=== PATIENT | female | born 1965 | race African-American/Black ===

== ENCOUNTER 2016-08-17 22:37 | Inpatient (IN) | payer OTHER ==
--- NOTE | 2016-08-17 22:57 | PDOC ---
History of Present Illness - General Chief Complaint: Respiratory Stated Complaint: FEVER Time Seen by Provider: 08/17/16 22:52 - History of Present Illness Initial Comments: 08/18/16 00:05 Ms. Cannon is a 51 y/o female with a PMH of cardiac stenting, eczema, presents to the ED complaining of worsening eczema on her palms, fevers, and chills. Pt. states she has worsening eczema of her hands and it has been going on for approximately one month. At that time, she went to [facility] emergency room where she was referred to a cycle specialist. She was given an antihistamine and clobetasol cream at that time. Neither medication helped her eczema and pt. reports that the antihistamine made her hands swell. She stopped using all medications for her hands. Now she states that she has fevers and chills for 2 days and there is pus in the hands and the pustules are draining. Pt. states she is not taking any antibiotics at this time, nor has she had a recent antibiotic prescription. Denies cough, wheezing, palpitations, chest pain, N/V/ D. GENERAL/CONSTITUTIONAL: (+) reported fever or chills. No weakness. No weight change. HEAD, EYES, EARS, NOSE AND THROAT: No change in vision. No ear pain or discharge. No sore throat. CARDIOVASCULAR: No chest pain or palpitations. RESPIRATORY: No cough, wheezing, or shortness of breath. GASTROINTESTINAL: No nausea, vomiting, diarrhea or constipation. GENITOURINARY: No dysuria, frequency, or change in urination. MUSCULOSKELETAL: No joint or muscle swelling or pain. No neck or back pain. SKIN: (+) numular eczema b/L palms with draining pustules. NEUROLOGIC: No headache, vertigo, loss of consciousness, or loss of sensation. PSYCHIATRIC: No depression or anxiety. ENDOCRINE: No increased thirst. No abnormal weight change. HEMATOLOGIC/LYMPHATIC: No anemia, easy bleeding, or history of blood clots. ALLERGIC/IMMUNOLOGIC: No hives or skin allergy. No latex allergy. Past History - Past Medical History Allergies/Adverse Reactions: Allergies Allergy/AdvReac Type Severity Reaction Status Date / Time shellfish derived Allergy Verified 08/17/16 22:45 Home Medications: Ambulatory Orders Aspirin [ASA -] 81 mg PO DAILY 08/17/16 Clopidogrel Bisulfate [Clopidogrel] 75 mg PO DAILY 08/17/16 Metoprolol Succinate [Toprol Xl -] 25 mg PO BID 08/17/16 Ranolazine [Ranexa] 500 mg PO DAILY 08/17/16 Valsartan [Diovan] 40 mg PO DAILY 08/17/16 Asthma: Yes Cardiac Disorders: Yes GI Disorders: Yes (Diverticulitis) HTN: Yes Hypercholesterolemia: Yes - Surgical History Cardiac Surgery: Yes (Stent x 1) - Immunization History Immunization Up to Date: No - Psycho/Social/Smoking Cessation Hx Anxiety: No Suicidal Ideation: No Smoking History: Never smoked Have you smoked in the past 12 months: No Information on smoking cessation initiated: No Hx Alcohol Use: Yes Drug/Substance Use Hx: No Substance Use Type: Alcohol *Physical Exam - Vital Signs Last Vital Signs Temp Pulse Resp BP Pulse Ox 98.7 F 106 H 19 160/100 98 08/17/16 22:39 08/17/16 22:39 08/17/16 22:39 08/17/16 22:39 08/17/16 22:39 - Physical Exam Comments: 08/18/16 00:18 GENERAL: The patient is awake, alert, and fully oriented, in no acute distress. Pt. laying on bed under a blanket. HEAD: Normal with no signs of trauma. ENT: Pupils equal, round and reactive to light, extraocular movements intact, sclera anicteric, conjunctiva clear. Neck supple. LUNGS: Clear to auscultation bilaterally. Normal excursion. No respiratory distress or use of accessory muscles. CV: RRR, S1/S2, no MRG. Cap refill < 2 sec. ABDOMEN: Soft, non-distended, non-tender. EXTREMITIES: Normal range of motion, no edema. NEUROLOGICAL: Normal speech, normal gait. CN II-XII grossly intact. PSYCH: Normal mood, normal affect. SKIN: Warm, dry, normal turgor. (+) B/L nummular eczema with draining pustules over the palmar surface. . ED Treatment Course - LABORATORY CBC & Chemistry Diagram: 08/17/16 23:31 08/17/16 23:31 Medical Decision Making - Medical Decision Making 08/17/16 11:21 Ms. Cannon is a 51 y/o female with worsening nummular eczema of the palmar surfaces of her hands. Because of the pt's constitutional symptoms will order basic labs and order an empric dose of keflex. Pt. has no other complaints at this time. Will order CBC, CMP Keflex and tylenol for the infection. Will re-evaluate 08/18/16 00:24 CBC shows an elevated white count of 16. Will culture the site at this time for pathogen. Will start IV antibitotics. Will admit at this time. 08/18/16 00:[address] Carrion 08/18/16 01:[address] Carrion. Since pt. is stable will call at 6:00. *DC/Admit/Observation/Transfer Diagnosis at time of Disposition: Nummular eczema Leukocytosis Qualifiers: Leukocytosis type: unspecified Qualified Code(s): D72.829 - Elevated white blood cell count, unspecified - Discharge Dispostion Condition at time of disposition: Fair Admit: Yes - Referrals Referrals: Armando Garcia [Primary Care Provider] -
[2016-08-17] MEDS ORDERED: ACETAMINOPHEN 325 MG TABLET (FP) PO ONE (23:15)
[2016-08-17] MEDS ORDERED: CEPHALEXIN MONOHYDRATE 500 MG CAPSULE (UD) PO ONE (23:17)
[2016-08-17] MEDS ORDERED: ACETAMINOPHEN 325 MG TABLET (FP) ONE (23:19)
[2016-08-17 23:59] LABS: BASOPHIL 0.4 % (0-2.0); EOSINOPHIL 0.8 % (0-4.5); MCH 30.9 pg (25.7-33.7); MCHC 33.5 g/dl (32.0-36.0); MEAN PLT VOLUME 7.3 fl (7.5-11.1); NEUTROPHILS 75.3 % (42.8-82.8); PLATELET COUNT 280 K/MM3 (134-434); RDW 14.9 % (11.6-15.6)
[2016-08-18] MEDS ORDERED: CEPHALEXIN MONOHYDRATE 250 MG CAPSULE (FP) ONE (00:03)
[2016-08-18 00:08] LABS: ALBUMIN 3.9 g/dl (3.4-5.0); ALK PHOS 71 U/L (45-117); ANION GAP 9 (8-16); BILIRUBIN,TOTAL 0.2 mg/dL (0.2-1.0); CALCIUM 8.7 mg/dL (8.5-10.1); CO2 26 mmol/L (21-32); CREATININE 0.9 mg/dL (0.55-1.02); GLUCOSE,RANDOM 104 mg/dL (74-106); SGOT/AST 12 U/L (15-37); SGPT/ALT 16 U/L (12-78); TOT PROT 7.1 g/dl (6.4-8.2)
[2016-08-18] MEDS ORDERED: CEFAZOLIN 1 GM in DEXTROSE 5%-WATER - 50 ML IVPB ONE (00:46)
[2016-08-18] MEDS ORDERED: CEFAZOLIN (PRE-DOCKED) 50 ML IVPB ONE (01:32)
[2016-08-18] MEDS ORDERED: ACETAMINOPHEN 325 MG TABLET (FP) PO PRN (03:37)
[2016-08-18 08:32] VITALS: BMI 38.1
--- NOTE | 2016-08-18 09:19 | PN ---
Progress Note (short form) - Note Progress Note: ID Consult dictated Pustular dermatitis, hands bilat Fever/ chills, possible sepsis secondary to skin source Await c/s Empiric vancomycin / ceftriaxone Dermatology eval HIV test
[2016-08-18] MEDS: VALSARTAN 40 MG TABLET (FP) PO SCH (09:46)
[2016-08-18] MEDS: HEPARIN NA (PORCINE) 5,000 UNITS/ML 1ML VIAL SQ SCH ×2 (09:46→23:04)
[2016-08-18] MEDS: ASPIRIN 81 MG CHEWABLE TABLETS PO SCH (09:46)
[2016-08-18] MEDS: CLOPIDOGREL BISULFATE 75 MG TABLET (FP) PO SCH (09:46)
[2016-08-18] MEDS: RANOLAZINE E.R. 500 MG TABLET (FP) PO SCH (09:47)
[2016-08-18] MEDS: METOPROLOL SUCCINATE 25 MG TAB.SR.24H (FP) PO SCH ×2 (09:47→23:04)
[2016-08-18] MEDS: methylPREDNISolone NA SUCC 40 MG/1 ML VIAL IVPB SCH (09:47)
[2016-08-18] MEDS: CEFTRIAXONE 50 ML IVPB SCH (09:53)
--- NOTE | 2016-08-18 10:21 | CONS ---
DATE OF CONSULTATION: 08/18/2016 HISTORY OF PRESENT ILLNESS: The patient is a 51-year-old female who is evaluated for possible sepsis. She has a history of eczema. She reports that approximately one month ago, she developed eczema involving the palms of her hands bilaterally. She also had subjective fever and chills. She was seen in the emergency room at [facility] and was referred to a drone software development engineer. She reports being prescribed topical treatment. Despite the therapy, she has noted a marked worsening in the eczema involving her hands bilaterally. She had developed pustules from which purulent fluid was draining. She also experienced some fever and chills. She did not take any antibiotic therapy during this period. The patient reports a history of hidradenitis suppurativa involving both axillary areas. She has had a history of recurrent staphylococcus infections of the skin. However, she denied specifically history of MRSA. She was HIV tested recently as an outpatient and was negative. PAST MEDICAL HISTORY: Positive for coronary artery disease status post coronary artery stents, eczema, hidradenitis suppurativa. PAST SURGICAL HISTORY: Status post right total hip replacement approximately 4 years ago. ALLERGIES: To SHELLFISH. MEDICATIONS: Include Solu-Medrol, Tylenol, Diovan, heparin, Toprol, aspirin, Plavix. SOCIAL HISTORY: She lives at home. A nonsmoker, but occasional EtOH. SYSTEMS REVIEW: Neurologic: No loss of consciousness, seizure activity, focal weakness. Cardiac: Negative for chest pain or palpitations. Positive history of coronary artery stent. Gastrointestinal: Negative for vomiting or diarrhea. Genitourinary: Negative for urinary tract infection. LABORATORY DATA: White count 16.0, 75 neutrophils, 14 lymphocytes, 9 monocytes, hematocrit 36.6, platelet count 280. Creatinine 0.9. Blood cultures and wound culture pending. PHYSICAL EXAMINATION: General: She is awake and alert. She is weak-appearing. She is not acute toxic. Vital signs: Temperature 99.3, blood pressure 150/77, pulse 93 and regular, respirations 20 per minute. HEENT: Sclerae anicteric. Heart: Heart sounds S1, S2. Lungs: Clear. Abdomen: Obese, soft nontender. Extremities: Negative for pedal edema. Skin: Examination of the hands, she has a pustular dermatitis involving the palms of both hand extending from the palms to the ventral aspect of all digits. They are dry. There is no purulent drainage noted. No erythema. No lymphangitic streaking. IMPRESSION: 1. Pustular dermatitis of the hands bilaterally. 2. Fevers, chills, leukocytosis, possible sepsis secondary to skin sores. 3. History of staphylococcal skin infections. 4. History of eczema. Advised dermatology evaluation. Empiric coverage for possible bacteremia secondary to skin sores. Pending cultures with vancomycin and ceftriaxone. HIV testing. Patient gives verbal consent. Will follow. Thank you for the kind referral. DAFNE LINTON M.D. [id number]
--- NOTE | 2016-08-18 12:04 | HP ---
Admitting History and Physical - Primary Care Physician PCP: Armando Garcia - Admission Chief Complaint: SEVERE ECZEMA. INFECTION History Source: Medical Record - Past Medical History ...: No - Smoking History Smoking history: Never smoked Have you smoked in the past 12 months: No - Alcohol/Substance Use Hx Alcohol Use: Yes Home Medications - Allergies Allergies/Adverse Reactions: Allergies Allergy/AdvReac Type Severity Reaction Status Date / Time shellfish derived Allergy Verified 08/17/16 22:45 - Home Medications Home Medications: Ambulatory Orders Aspirin [ASA -] 81 mg PO DAILY 08/17/16 Clopidogrel Bisulfate [Clopidogrel] 75 mg PO DAILY 08/17/16 Metoprolol Succinate [Toprol Xl -] 25 mg PO BID 08/17/16 Ranolazine [Ranexa] 500 mg PO DAILY 08/17/16 Valsartan [Diovan] 40 mg PO DAILY 08/17/16 Omeprazole 20 mg PO DAILY 08/18/16 Simvastatin [Zocor -] 20 mg PO HS 08/18/16 Review of Systems - Review of Systems Constitutional: reports: Chills, Fever Cardiovascular: denies: Chest Pain Respiratory: denies: SOB Gastrointestinal: reports: Other (NO BM x 4 DAYS). denies: Abdominal Pain Integumentary: reports: Blister, Change in Color, Eczema, Erythema, Lesions Physical Examination Vital Signs: Vital Signs Temperature 99.3 F 08/18/16 03:43 Pulse Rate 93 H 08/18/16 03:43 Respiratory Rate 20 08/18/16 03:43 Blood Pressure 150/77 08/18/16 03:43 O2 Sat by Pulse Oximetry (%) 97 08/18/16 03:22 Constitutional: Yes: Calm Cardiovascular: Yes: Regular Rate and Rhythm, S1, S2 Respiratory: Yes: CTA Bilaterally Gastrointestinal: Yes: Normal Bowel Sounds, Soft Edema: No Integumentary: Yes: Rash (PALMS -> IMPROVED. DRY. MINIMAL DISCHARGE) Problem List - Problems (1) Leukocytosis Code(s): D72.829 - ELEVATED WHITE BLOOD CELL COUNT, UNSPECIFIED Qualifiers: Leukocytosis type: unspecified Qualified Code(s): D72.829 - Elevated white blood cell count, unspecified (2) Nummular eczema Code(s): L30.0 - NUMMULAR DERMATITIS (3) Asthma Code(s): J45.909 - UNSPECIFIED ASTHMA, UNCOMPLICATED (4) HTN (hypertension) Code(s): I10 - ESSENTIAL (PRIMARY) HYPERTENSION Assessment/Plan Ms. Cannon is a 51 y/o female with a PMH of cardiac stenting, eczema, presents to the ED complaining of worsening eczema on her palms, fevers, and chills. Pt. states she has worsening eczema of her hands and it has been going on for approximately one month. At that time, she went to [facility] emergency room where she was referred to a axle bearing polisher. She was given an antihistamine and clobetasol cream at that time. Neither medication helped her eczema and pt. reports that the antihistamine made her hands swell. She stopped using all medications for her hands. Now she states that she has fevers and chills for 2 days and there is pus in the hands and the pustules are draining. Pt. states she is not taking any antibiotics at this time, nor has she had a recent antibiotic prescription. Denies cough, wheezing, palpitations, chest pain, N/V/ D. 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
[2016-08-18] MEDS ORDERED: ALBUTEROL SO4 0.083% IH SOL 2.5 MG/3 ML VIAL.NEB. NEB PRN (12:08)
[2016-08-18] MEDS: VANCOMYCIN 1 GRAM (PRE-DOCKED) 250 ML IVPB SCH ×2 (12:55→23:04)
[2016-08-18] MEDS: POLYETHYLENE GLYCOL 3350 119 GM BTL PO SCH (14:55)
--- NOTE | 2016-08-18 17:12 | CONSULT ---
Consult Consult Specialty:: Dermatology - History Source History Provided By: Patient - Past Medical History ...: No - Alcohol/Substance Use Hx Alcohol Use: Yes - Smoking History Smoking history: Never smoked Have you smoked in the past 12 months: No Home Medications - Allergies Allergies/Adverse Reactions: Allergies Allergy/AdvReac Type Severity Reaction Status Date / Time shellfish derived Allergy Verified 08/17/16 22:45 - Home Medications Home Medications: Ambulatory Orders Aspirin [ASA -] 81 mg PO DAILY 08/17/16 Clopidogrel Bisulfate [Clopidogrel] 75 mg PO DAILY 08/17/16 Metoprolol Succinate [Toprol Xl -] 25 mg PO BID 08/17/16 Ranolazine [Ranexa] 500 mg PO DAILY 08/17/16 Valsartan [Diovan] 40 mg PO DAILY 08/17/16 Omeprazole 20 mg PO DAILY 08/18/16 Simvastatin [Zocor -] 20 mg PO HS 08/18/16 Physical Exam Vital Signs: Vital Signs Temperature 98.0 F 08/18/16 14:00 Pulse Rate 96 H 08/18/16 14:00 Respiratory Rate 20 08/18/16 14:00 Blood Pressure 136/77 08/18/16 14:00 O2 Sat by Pulse Oximetry (%) 97 08/18/16 03:22 Assessment/Plan examined patient for rash on hands. patient has a history of hand dermatitis for a few years for which she has been treated by various Dermatologists On examination she has a severe eczematous eruption on both palms of hands with crusting and fissuring and slight edema. Diagnosis impetiginized dyshydrotic Eczema. Rx Triamcinolone ointment mixed with bactroban ointment BID Follow up as an outpatient after completion of antibiotic Rx
[2016-08-18] MEDS: MUPIROCIN 2% TOPICAL OINTMENT 22 GM TUBE TP SCH (23:03)
[2016-08-18] MEDS: TRIAMCINOLONE ACET 0.1% OINT 15 GM TUBE TP SCH (23:04)
[2016-08-19 02:28] VITALS: TEMP 98.1
[2016-08-19 08:15] LABS: ALBUMIN 3.7 g/dl (3.4-5.0); ANION GAP 10 (8-16); BILIRUBIN,TOTAL 0.4 mg/dL (0.2-1.0); CALCIUM 9.2 mg/dL (8.5-10.1); CO2 26 mmol/L (21-32); CREATININE 0.8 mg/dL (0.55-1.02); GLUCOSE,RANDOM 79 mg/dL (74-106); SGOT/AST 6 U/L (15-37); SGPT/ALT 14 U/L (12-78); TOT PROT 7.1 g/dl (6.4-8.2)
[2016-08-19 08:16] LABS: ALK PHOS 71 U/L (45-117)
[2016-08-19 08:31] LABS: BASOPHIL 0.2 % (0-2.0); MCH 31.2 pg (25.7-33.7); MCHC 33.6 g/dl (32.0-36.0); MEAN CELL VOLUME 92.6 fl (80-96); MEAN PLT VOLUME 7.4 fl (7.5-11.1); NEUTROPHILS 75.3 % (42.8-82.8); PLATELET COUNT 261 K/MM3 (134-434); RDW 14.7 % (11.6-15.6); WHITE BLOOD COUNT 15.1 K/mm3 (4.0-10.0)
[2016-08-19 09:27] LABS: HIV 1 & 2 AB NEGATIVE; HIV 1 AGp24 NEGATIVE
--- NOTE | 2016-08-19 09:34 | PN ---
[id number] (Tylenol -) 650 mg PO Q6H PRN PRN Reason: FEVER OR PAIN Last Admin: 08/19/16 02:51 Dose: 650 mg Albuterol Sulfate (Ventolin 0.083% Nebulizer Soln -) 1 amp NEB Q4H PRN PRN Reason: SHORT OF BREATH/WHEEZING Last Admin: 08/18/16 15:34 Dose: 1 amp Aspirin (Asa -) 81 mg PO DAILY [facility] Last Admin: 08/18/16 09:46 Dose: 81 mg Clopidogrel Bisulfate (Plavix -) 75 mg PO DAILY [facility] Last Admin: 08/18/16 09:46 Dose: Not Given Heparin Sodium (Porcine) (Heparin -) 5,000 unit SQ BID [facility] Last Admin: 08/18/16 23:04 Dose: 5,000 unit Vancomycin HCl (Vancomycin (Pre-Docked)) 250 mls @ 200 mls/hr IVPB BID [facility] Last Admin: 08/18/16 23:04 Dose: 200 mls/hr Ceftriaxone Sodium (Rocephin 1gm Ivpb (Pre-Docked)) 50 mls @ 100 mls/hr IVPB DAILY [facility] Last Admin: 08/18/16 09:53 Dose: 100 mls/hr Methylprednisolone Sodium Succinate (Solu-Medrol -) 40 mg IVPB DAILY [facility] Last Admin: 08/18/16 09:47 Dose: 40 mg Metoprolol Succinate (Toprol Xl -) 25 mg PO BID [facility] Last Admin: 08/18/16 23:04 Dose: 25 mg Mupirocin (Bactroban 2% Ointment -) 1 applic TP BID [facility] Last Admin: 08/18/16 23:03 Dose: 1 applic Polyethylene Glycol (Miralax (For Daily Use) -) 17 gm PO DAILY [facility] Last Admin: 08/18/16 14:55 Dose: 17 gm Ranolazine (Ranexa -) 500 mg PO DAILY [facility] Last Admin: 08/18/16 09:47 Dose: 500 mg Triamcinolone Acetonide (Aristocort 0.1% Ointment -) 1 applic TP BID [facility] Last Admin: 08/18/16 23:04 Dose: 1 applic Valsartan (Diovan -) 40 mg PO DAILY [facility] Last Admin: 08/18/16 09:46 Dose: 40 mg - Objective Vital Signs: Vital Signs Temperature 98.1 F 08/19/16 02:27 Pulse Rate 76 08/19/16 02:27 Respiratory Rate 20 08/19/16 02:27 Blood Pressure 154/97 08/19/16 02:27 O2 Sat by Pulse Oximetry (%) 97 08/18/16 21:00 Cardiovascular: Yes: WNL Respiratory: Yes: WNL Gastrointestinal: Yes: WNL Labs: CBC, BMP 08/19/16 06:20 08/19/16 06:20 Problem List - Problems (1) Leukocytosis Code(s): D72.829 - ELEVATED WHITE BLOOD CELL COUNT, UNSPECIFIED Qualifiers: Leukocytosis type: unspecified Qualified Code(s): D72.829 - Elevated white blood cell count, unspecified (2) Nummular eczema Code(s): L30.0 - NUMMULAR DERMATITIS (3) Asthma Code(s): J45.909 - UNSPECIFIED ASTHMA, UNCOMPLICATED (4) HTN (hypertension) Code(s): I10 - ESSENTIAL (PRIMARY) HYPERTENSION Assessment/Plan Ms. Cannon is a 51 y/o female with a PMH of cardiac stenting, eczema, presents to the ED complaining of worsening eczema on her palms, fevers, and chills. Pt. states she has worsening eczema of her hands and it has been going on for approximately one month. At that time, she went to [facility] emergency room where she was referred to a fisher scallop. She was given an antihistamine and clobetasol cream at that time. Neither medication helped her eczema and pt. reports that the antihistamine made her hands swell. She stopped using all medications for her hands. Now she states that she has fevers and chills for 2 days and there is pus in the hands and the pustules are draining. Pt. states she is not taking any antibiotics at this time, nor has she had a recent antibiotic prescription. Denies cough, wheezing, palpitations, chest pain, N/V/ D. (1) Leukocytosis Code(s): D72.829 - ELEVATED WHITE BLOOD CELL COUNT, UNSPECIFIED Qualifiers: Leukocytosis type: unspecified Qualified Code(s): D72.829 - Elevated white blood cell count, unspecified APPRECIATE ID CONSULT F/U CULTURES IV ABx DERM CONSULT NOTED -> impetiginized dyshydrotic Eczema. 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
[2016-08-19] MEDS: VANCOMYCIN 1 GRAM (PRE-DOCKED) 250 ML IVPB SCH (10:34)
[2016-08-19] MEDS: VALSARTAN 40 MG TABLET (FP) PO SCH (10:35)
[2016-08-19] MEDS: methylPREDNISolone NA SUCC 40 MG/1 ML VIAL IVPB SCH (10:36)
[2016-08-19] MEDS: METOPROLOL SUCCINATE 25 MG TAB.SR.24H (FP) PO SCH (10:36)
[2016-08-19] MEDS: CLOPIDOGREL BISULFATE 75 MG TABLET (FP) PO SCH (10:36)
[2016-08-19] MEDS: ASPIRIN 81 MG CHEWABLE TABLETS PO SCH (10:36)
[2016-08-19] MEDS: RANOLAZINE E.R. 500 MG TABLET (FP) PO SCH (10:36)
[2016-08-19] MEDS: CEFTRIAXONE 50 ML IVPB SCH (10:36)
[2016-08-19] MEDS: TRIAMCINOLONE ACET 0.1% OINT 15 GM TUBE TP SCH (10:37)
[2016-08-19] MEDS: HEPARIN NA (PORCINE) 5,000 UNITS/ML 1ML VIAL SQ SCH (10:37)
[2016-08-19] MEDS: POLYETHYLENE GLYCOL 3350 119 GM BTL PO SCH (10:37)
[2016-08-19] MEDS: MUPIROCIN 2% TOPICAL OINTMENT 22 GM TUBE TP SCH (10:37)
--- NOTE | 2016-08-19 10:55 | PN ---
Progress Note, Physician History of Present Illness: Feeling better No c/o hand pain No fever/ chills Dermatology evaluation appreciated Blood c/s (-) - Current Medication List Current Medications: Active Medications Acetaminophen (Tylenol -) 650 mg PO Q6H PRN PRN Reason: FEVER OR PAIN Last Admin: 08/19/16 02:51 Dose: 650 mg Albuterol Sulfate (Ventolin 0.083% Nebulizer Soln -) 1 amp NEB Q4H PRN PRN Reason: SHORT OF BREATH/WHEEZING Last Admin: 08/18/16 15:34 Dose: 1 amp Aspirin (Asa -) 81 mg PO DAILY [facility] Last Admin: 08/19/16 10:36 Dose: 81 mg Clopidogrel Bisulfate (Plavix -) 75 mg PO DAILY [facility] Last Admin: 08/19/16 10:36 Dose: 75 mg Heparin Sodium (Porcine) (Heparin -) 5,000 unit SQ BID [facility] Last Admin: 08/19/16 10:37 Dose: 5,000 unit Vancomycin HCl (Vancomycin (Pre-Docked)) 250 mls @ 200 mls/hr IVPB BID [facility] Last Admin: 08/19/16 10:34 Dose: 200 mls/hr Ceftriaxone Sodium (Rocephin 1gm Ivpb (Pre-Docked)) 50 mls @ 100 mls/hr IVPB DAILY [facility] Last Admin: 08/19/16 10:36 Dose: 100 mls/hr Methylprednisolone Sodium Succinate (Solu-Medrol -) 40 mg IVPB DAILY [facility] Last Admin: 08/19/16 10:36 Dose: 40 mg Metoprolol Succinate (Toprol Xl -) 25 mg PO BID [facility] Last Admin: 08/19/16 10:36 Dose: 25 mg Mupirocin (Bactroban 2% Ointment -) 1 applic TP BID [facility] Last Admin: 08/19/16 10:37 Dose: 1 applic Polyethylene Glycol (Miralax (For Daily Use) -) 17 gm PO DAILY [facility] Last Admin: 08/19/16 10:37 Dose: 17 gm Ranolazine (Ranexa -) 500 mg PO DAILY [facility] Last Admin: 08/19/16 10:36 Dose: 500 mg Triamcinolone Acetonide (Aristocort 0.1% Ointment -) 1 applic TP BID [facility] Last Admin: 08/19/16 10:37 Dose: 1 applic Valsartan (Diovan -) 40 mg PO DAILY [facility] Last Admin: 08/19/16 10:35 Dose: 40 mg - Objective Vital Signs: Vital Signs Temperature 98.1 F 08/19/16 02:27 Pulse Rate 76 08/19/16 02:27 Respiratory Rate 20 08/19/16 02:27 Blood Pressure 154/97 08/19/16 02:27 O2 Sat by Pulse Oximetry (%) 97 08/18/16 21:00 Constitutional: Yes: No Distress Cardiovascular: Yes: Regular Rate and Rhythm, S1, S2 Respiratory: Yes: CTA Bilaterally Gastrointestinal: Yes: Normal Bowel Sounds, Soft, Abdomen, Obese. No: Tenderness Extremities: Yes: Other (dry pustular rash, palms bilaterally) Labs: CBC, BMP 08/19/16 06:20 08/19/16 06:20 Assessment/Plan Eczema Possible secondary infection Leukocytosis likely steroid- related Continue topical therapy Substitute po keflex 500mg q8h x 5days OK for D/C, outpatient dermatology followup
--- NOTE | 2016-08-19 11:02 | DS ---
Physical Examination Vital Signs: Vital Signs Temperature 98.1 F 08/19/16 02:27 Pulse Rate 76 08/19/16 02:27 Respiratory Rate 20 08/19/16 02:27 Blood Pressure 154/97 08/19/16 02:27 O2 Sat by Pulse Oximetry (%) 97 08/18/16 21:00 Constitutional: Yes: Calm Cardiovascular: Yes: Regular Rate and Rhythm, S1, S2 Respiratory: Yes: CTA Bilaterally Gastrointestinal: Yes: Normal Bowel Sounds, Soft Edema: No Integumentary: Yes: Rash (IMPROVED) Labs: CBC, BMP 08/19/16 06:20 08/19/16 06:20 Discharge Summary Reason For Visit: NUMMULAR ECZEMA, LEUKOCYTOSIS Current Active Problems Asthma (Acute) HTN (hypertension) (Acute) Leukocytosis (Acute) Nummular eczema (Acute) Hospital Course: Ms. Cannon is a 51 y/o female with a PMH of cardiac stenting, eczema, presents to the ED complaining of worsening eczema on her palms, fevers, and chills. Pt. states she has worsening eczema of her hands and it has been going on for approximately one month. At that time, she went to [facility] emergency room where she was referred to a desktop operator. She was given an antihistamine and clobetasol cream at that time. Neither medication helped her eczema and pt. reports that the antihistamine made her hands swell. She stopped using all medications for her hands. Now she states that she has fevers and chills for 2 days and there is pus in the hands and the pustules are draining. Pt. states she is not taking any antibiotics at this time, nor has she had a recent antibiotic prescription. Denies cough, wheezing, palpitations, chest pain, N/V/ D. (1) Leukocytosis Code(s): D72.829 - ELEVATED WHITE BLOOD CELL COUNT, UNSPECIFIED Qualifiers: Leukocytosis type: unspecified Qualified Code(s): D72.829 - Elevated white blood cell count, unspecified APPRECIATE ID CONSULT F/U CULTURES IV ABx -> PO DERM CONSULT NOTED -> impetiginized dyshydrotic Eczema. 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
[2016-08-19 11:19] VITALS: BP 145/80; PULSE 87
[2016-08-19] MEDS ORDERED: CEPHALEXIN MONOHYDRATE 500 MG CAPSULE (UD) PO SCH (14:00)
== END 2016-08-19 11:39 | disposition home or self-care (01) | DRG 607 ==
LOC: JER 22:37 → JERBED 08-18 03:43 → J6S 08-18 07:26
PROVIDERS: ADMIT Family Medicine; ATTEND Family Medicine
DX: L30.0 Nummular dermatitis (principal); J45.909 Unspecified asthma, uncomplicated; I10 Essential (primary) hypertension; D72.829 Elevated white blood cell count, unspecified; L30.1 Dyshidrosis [pompholyx]
CPT/HCPCS: 36415; 80053; 85025; 87040; 87070; 87186; 87205; 87389; 94640; 99285-25; J1644

== ENCOUNTER 2016-09-18 17:25 | Emergency (ER) | payer OTHER ==
[2016-09-18 17:35] VITALS: BP 149/94; PULSE 89; TEMP 98.2; BMI 37.8
--- NOTE | 2016-09-18 17:37 | PDOC ---
Rapid Medical Evaluation Time Seen by Provider: 09/18/16 17:32 Medical Evaluation: Allergies Allergy/AdvReac Type Severity Reaction Status Date / Time shellfish derived Allergy Verified 08/17/16 22:45 09/18/16 17:32 Pt comes with bilateral hand "eczema" She states that it smells, and her hands and skin smell when they get infected. She seems to have either psoriasis of the nails or a fungal infection of the nails. 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 She will be seen in the main ER.
--- NOTE | 2016-09-18 19:43 | PDOC ---
History of Present Illness - General Chief Complaint: Wound Infection Stated Complaint: INFECTION Time Seen by Provider: 09/18/16 17:32 History Source: Patient Exam Limitations: No Limitations - History of Present Illness Timing/Duration: unsure Past History - Travel Traveled outside of the country in the last 30 days: No Close contact w/someone who was outside of country & ill: No - Past Medical History Allergies/Adverse Reactions: Allergies Allergy/AdvReac Type Severity Reaction Status Date / Time shellfish derived Allergy Verified 09/18/16 17:34 Home Medications: Ambulatory Orders Aspirin [ASA -] 81 mg PO DAILY 08/17/16 Clopidogrel Bisulfate [Clopidogrel] 75 mg PO DAILY 08/17/16 Metoprolol Succinate [Toprol XL -] 25 mg PO BID 08/17/16 Ranolazine [Ranexa] 500 mg PO DAILY 08/17/16 Valsartan [Diovan] 40 mg PO DAILY 08/17/16 Omeprazole 20 mg PO DAILY 08/18/16 Simvastatin [Zocor -] 20 mg PO HS 08/18/16 Albuterol Sulfate Inhaler - [Ventolin Hfa Inhaler -] 1 - 2 inh PO Q4H #1 inhaler 08/19/16 Mupirocin Ointment [Bactroban 2% Ointment -] 1 applic TP BID #1 tube 08/19/16 Triamcinolone 0.1% Ointment [Aristocort 0.1% Ointment -] 1 applic TP BID #1 tube 08/19/16 Mupirocin Cream [Bactroban 2% Cream -] 1 applic TP BID #1 tube 09/18/16 Oxycodone HCl/Acetaminophen [Percocet 10-325 mg Tablet] 1 each PO TID 09/18/16 Triamcinolone 0.1% Lotion [Aristocort 0.1% Lotion -] 1 applic TP BID #60 lotion 09/18/16 Anemia: No Asthma: Yes Cancer: No Cardiac Disorders: Yes (x2) CVA: No COPD: No CHF: No Dementia: No Diabetes: No GI Disorders: Yes (Diverticulitis) Disorders: No HTN: Yes Hypercholesterolemia: Yes Liver Disease: No Seizures: No Thyroid Disease: No - Surgical History Abdominal Surgery: No Appendectomy: No Cardiac Surgery: Yes (Stent x 1) Cholecystectomy: No Lung Surgery: No Neurologic Surgery: No Orthopedic Surgery: No - Immunization History Immunization Up to Date: No - Psycho/Social/Smoking Cessation Hx Anxiety: No Suicidal Ideation: No Smoking History: Never smoked Have you smoked in the past 12 months: No Information on smoking cessation initiated: No Hx Alcohol Use: Yes Drug/Substance Use Hx: No Substance Use Type: Alcohol Review of Systems - Review of Systems Able to Perform ROS?: Yes Comments:: 09/18/16 20:27 CONSTITUTIONAL: Absent: fever, chills, diaphoresis, generalized weakness, malaise, loss of appetite HEENT: Absent: rhinorrhea, nasal congestion, throat pain, throat swelling, difficulty swallowing, mouth swelling, ear pain, eye pain, visual Changes CARDIOVASCULAR: Absent: chest pain, loss of consciousness, palpitations, irregular heart rate, peripheral edema RESPIRATORY: Absent: cough, shortness of breath, dyspnea with exertion, orthopnea, wheezing, stridor, hemoptysis GASTROINTESTINAL: Absent: abdominal pain, abdominal distension, nausea, vomiting, diarrhea, constipation, melena, hematochezia GENITOURINARY: Absent: dysuria, frequency, urgency, hesitancy, hematuria, flank pain, genital pain MUSCULOSKELETAL: Absent: myalgia, arthralgia, joint swelling SKIN: B/L hand eczema Absent: rash, itching, pallor HEMATOLOGIC/IMMUNOLOGIC: Absent: easy bleeding, easy bruising, lymphadenopathy, frequent infections ENDOCRINE: Absent: unexplained weight gain, unexplained weight loss, heat intolerance, cold intolerance NEUROLOGIC: Absent: headache, focal weakness or paresthesias, dizziness, unsteady gait, seizure, mental status changes, bladder or bowel incontinence PSYCHIATRIC: Absent: anxiety, depression, suicidal or homicidal ideation, hallucinations. Is the patient limited Icelandic proficient: No *Physical Exam - Vital Signs Last Vital Signs Temp Pulse Resp BP Pulse Ox 98.2 F 89 18 149/94 98 09/18/16 17:31 09/18/16 17:31 09/18/16 17:31 09/18/16 17:31 09/18/16 17:31 - Physical Exam Comments: 09/18/16 20:25 R>L ppalms: eczematous eruption with crusting fissuring . No drainage/ no edema / no erythema Neg pain GENERAL: Well developed, well nourished. Awake and alert. No acute distress. HEENT: Normocephalic, atraumatic. PERRLA, EOMI. No conjunctival pallor. Sclera are non- icteric. Moist mucous membranes. Oropharynx is clear. NECK: Supple. Full ROM. No JVD. Carotid pulses 2+ and symmetric, without bruits. No thyromegaly. No lymphadenopathy. CARDIOVASCULAR: Regular rate and rhythm. No murmurs, rubs, or gallops. Distal pulses are 2+ and symmetric. PULMONARY: No evidence of respiratory distress. Lungs clear to auscultation bilaterally. No wheezing, rales or rhonchi. MUSCULOSKELETAL Normal range of motion at all joints. No bony deformities or tenderness. No CVA tenderness. EXTREMITIES: No cyanosis. No clubbing. No edema. No calf tenderness. SKIN: See above Warm and dry. Normal capillary refill. No rashes. No jaundice. *DC/Admit/Observation/Transfer Diagnosis at time of Disposition: Impetigo, Dyshidrotic eczema Diagnosis at time of Disposition: (Ruled Out): Eczema - Discharge Dispostion Disposition: HOME Condition at time of disposition: Stable Admit: No - Prescriptions Prescriptions: Triamcinolone 0.1% Lotion [Aristocort 0.1% Lotion -] 1 applic TP BID #60 lotion Mupirocin Cream [Bactroban 2% Cream -] 1 applic TP BID #1 tube - Referrals Referrals: Armando Garcia [Primary Care Provider] - Maya Arias MD [Staff Physician] - - Patient Instructions Printed Discharge Instructions: Eczema Additional Instructions: Must follow up with your Infectious disease physician and your public bath attendant Rx Triamcinolone ointment mixed with bactroban ointment BID Follow up as an outpatient after completion of antibiotic Rx Progress Note - Progress Note Progress Note: 51-year-old female with a Pmhx of eczema and cardiac stenting presents to the ED complaining of worsening eczema on b/l palms without fever or chills. 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 She has consulted with numerous dermatologists over the past years. She states she has worsening eczema on her hands over the past 3 days. She was seen at [facility] emergency department and was admitted because with ID consult. Patient has an appointment with infectious disease tomorrow. The patient states she ran out of medication for her eczema. Does not use patient states this episode of eczema has not been her worse 1. She denies any extremity numbness or tingling, cough, palpitations, shortness of breath or extremity numbness or tingling sensation. On her last admission, she was given RX:Triamcinolone ointment mixed with bactroban ointment BID which improved tremendously. Patient states she cannot locate her medication.
--- NOTE | 2016-09-18 20:06 | PDOC ---
*Physical Exam - Vital Signs Last Vital Signs Temp Pulse Resp BP Pulse Ox 98.2 F 89 18 149/94 98 09/18/16 17:31 09/18/16 17:31 09/18/16 17:31 09/18/16 17:31 09/18/16 17:31 Medical Decision Making - Medical Decision Making 09/18/16 20:05 agree with care from CHENTE Weiss *DC/Admit/Observation/Transfer Diagnosis at time of Disposition: Impetigo, Dyshidrotic eczema - Discharge Dispostion Disposition: HOME Condition at time of disposition: Stable - Prescriptions Prescriptions: Triamcinolone 0.1% Lotion [Aristocort 0.1% Lotion -] 1 applic TP BID #60 lotion Mupirocin Cream [Bactroban 2% Cream -] 1 applic TP BID #1 tube - Referrals Referrals: Maya Arias MD [Staff Physician] - Armando Garica [Primary Care Provider] - - Patient Instructions Printed Discharge Instructions: Eczema Additional Instructions: Must follow up with your Infectious disease physician and your neurologist Rx Triamcinolone ointment mixed with bactroban ointment BID Follow up as an outpatient after completion of antibiotic Rx
== END 2016-09-18 20:57 | disposition home or self-care (01) ==
LOC: JER 17:25
DX: L30.1 Dyshidrosis [pompholyx] (principal); J45.909 Unspecified asthma, uncomplicated; I51.9 Heart disease, unspecified; Z95.5 Presence of coronary angioplasty implant and graft; I10 Essential (primary) hypertension; E78.00 Pure hypercholesterolemia, unspecified; K57.90 Diverticulosis of intestine, part unspecified, without perforation or abscess without bleeding
CPT/HCPCS: 99283-25

== ENCOUNTER 2017-11-30 13:55 | Emergency (ER) | payer OTHER ==
[2017-11-30 14:11] VITALS: BP 155/102; PULSE 88; TEMP 98.3; BMI 38.6
--- NOTE | 2017-11-30 15:24 | PDOC ---
History of Present Illness - General Chief Complaint: Rash Stated Complaint: SWELLING TO HAND, FEVER Time Seen by Provider: 11/30/17 14:19 History Source: Patient - History of Present Illness Location: reports: hands Past History - Past Medical History Allergies/Adverse Reactions: Allergies Allergy/AdvReac Type Severity Reaction Status Date / Time shellfish derived Allergy Verified 11/30/17 14:11 Home Medications: Ambulatory Orders Aspirin [ASA -] 81 mg PO DAILY 08/17/16 Clopidogrel Bisulfate [Clopidogrel] 75 mg PO DAILY 08/17/16 Metoprolol Succinate [Toprol XL -] 25 mg PO BID 08/17/16 Ranolazine [Ranexa] 500 mg PO DAILY 08/17/16 Valsartan [Diovan] 40 mg PO DAILY 08/17/16 Omeprazole 20 mg PO DAILY 08/18/16 Simvastatin [Zocor -] 20 mg PO HS 08/18/16 Albuterol Sulfate Inhaler - [Ventolin Hfa Inhaler -] 1 - 2 inh PO Q4H #1 inhaler 08/19/16 Oxycodone HCl/Acetaminophen [Percocet 10-325 mg Tablet] 1 each PO TID 09/18/16 Anemia: No Asthma: Yes Cancer: No Cardiac Disorders: Yes (x2) CVA: No COPD: No CHF: No Dementia: No Diabetes: No GI Disorders: Yes (Diverticulitis) Disorders: No HTN: Yes Hypercholesterolemia: Yes Liver Disease: No Seizures: No Thyroid Disease: No Other medical history: psoriosis - Surgical History Abdominal Surgery: No Appendectomy: No Cardiac Surgery: Yes (Stent x 1) Cholecystectomy: No Lung Surgery: No Neurologic Surgery: No Orthopedic Surgery: No - Immunization History Immunization Up to Date: No - Suicide/Smoking/Psychosocial Hx Smoking History: Never smoked Have you smoked in the past 12 months: No Hx Alcohol Use: Yes Drug/Substance Use Hx: No Substance Use Type: Alcohol Review of Systems - Review of Systems Constitutional: No: Chills, Fever, Malaise Integumentary: Yes: Pruritus, Rash *Physical Exam - Vital Signs Last Vital Signs Temp Pulse Resp BP Pulse Ox 98.3 F 88 18 155/102 99 11/30/17 14:10 11/30/17 14:10 11/30/17 14:10 11/30/17 14:10 11/30/17 14:10 - Physical Exam General Appearance: Yes: Appropriately Dressed. No: Apparent Distress HEENT: positive: Normal Voice Neck: positive: Supple Respiratory/Chest: negative: Respiratory Distress Integumentary: positive: Dry, Warm, Rash (crusting/fissuring and pinpoint pustules to palmar and dorsal aspect of hands b/l, no erythema) Neurologic: positive: Fully Oriented, Alert, Normal Mood/Affect Medical Decision Making - Medical Decision Making 11/30/17 15:22 52-year-old morbidly obese female, history of hypertension, CAD with stents here w/ pruritic rash to hands b/l. Pt was dx w/ impetiginized dyshydrotic eczema by dermatology during admission for rash and constitutional sxs back in 2017. Was found to have leukocytosis with multiple organisms on wound culture. Was treated with IV antibiotics inhouse and discharged with triamcinolone ointment mixed with bactroban. Patient states ointments did not improve symptoms and has since been lost to dermatology follow-up. States more recently she has been going to a facility called [facility]" in [facility] and was getting laser treatments up until 8 months ago, which did significantly improve symptoms but states she can or longer afford treatment. States rash recurred several days ago. No pain, redness, fever, chills or malaise at this time. See exam Eczema flare to hands No e/o infection at this time -dc w/ triamcinolone and bactroban ointment and have pt f/u with derm next week for further eval/management BP 155/102 Asx from [facility] Reports compliance w/ meds -will rpt 11/30/17 15:40 During evaluation and discussion of treatment and follow-up, patient requesting oral antibiotics and refusing above ointments. I explained to patient at this time that though she does have a flareup of her eczema, that there is no evidence of infection at this time. In addition, bactroban is a topical antibiotics and can help prevent infection. I explained to pt that she will need to follow-up with dermatology next week for further evaluation and treatment. At that point, patient got up, called me a "bitch" and walked out of the ER to waiting room yelling obscenities and asking for a nurse healthcare consulting manager. Security called to scene. 11/30/17 16:35 general manager food was contacted and will come talk to pt as per BOARD DESIGN ENGINEER 11/30/17 16:41 As per BOARD DESIGN ENGINEER, pt walked out of ER *DC/Admit/Observation/Transfer Diagnosis at time of Disposition: Dyshidrotic eczema - Discharge Dispostion Disposition: HOME Condition at time of disposition: Stable - Referrals Referrals: Armando Garcia [Primary Care Provider] - Maya Arias MD [Staff Physician] - - Patient Instructions Printed Discharge Instructions: Eczema Additional Instructions: Please follow up with Dr. Arias of dermatology next week - Post Discharge Activity
== END 2017-11-30 17:24 | disposition home or self-care (01) ==
LOC: JERFT 13:55
DX: L30.1 Dyshidrosis [pompholyx] (principal); I25.10 Atherosclerotic heart disease of native coronary artery without angina pectoris; I10 Essential (primary) hypertension; Z95.5 Presence of coronary angioplasty implant and graft; Z87.19 Personal history of other diseases of the digestive system; E66.01 Morbid (severe) obesity due to excess calories; Z68.38 Body mass index [BMI] 38.0-38.9, adult
CPT/HCPCS: 99281-25

== ENCOUNTER 2017-11-30 18:11 | Emergency (ER) | payer OTHER ==
[2017-11-30 18:17] VITALS: BMI 38.6
--- NOTE | 2017-11-30 19:34 | PDOC ---
History of Present Illness - General History Source: Patient, Old Records Exam Limitations: No Limitations - History of Present Illness Initial Comments: 11/30/17 22:19 Patient is a 52 year old female with a significant past medical history of who presents to the ED with complaints of bilateral pustule hand rashes that began x2 days ago. Patient reports experiencing bilateral hand pain that she states is a 8/10 pain that she states is causing her to feel ill. She reports experiencing associated symptoms of fevers, and chills. Patient reports being seen in August 2016 for similar bilateral hand pain and rash, stating she saw her PCP who prescribed her with keflex. Denies chest pain, Sob. Denies nausea, vomiting. Denies contact with sick individuals, out of state travelling. Denies any other symptoms. Allergies: Shellfish Social history: Lives alone. No smoking. No alcohol. No illicit drugs. Surgical history: None PMD: Dr. Garcia <Ted Cuevas - Last Filed: 11/30/17 22:19> <Lilly Thomson - Last Filed: 12/01/17 05:03> - General Chief Complaint: Blood Pressure Problem Stated Complaint: HIGH BLOOD PRESSURE Time Seen by Provider: 11/30/17 19:24 Past History <Ted Cuevas - Last Filed: 11/30/17 22:19> - Past Medical History Anemia: No Asthma: Yes Cancer: No Cardiac Disorders: Yes (x2) CVA: No COPD: No CHF: No Dementia: No Diabetes: No GI Disorders: Yes (Diverticulitis) Disorders: No HTN: Yes Hypercholesterolemia: Yes Liver Disease: No Seizures: No Thyroid Disease: No - Surgical History Abdominal Surgery: No Appendectomy: No Cardiac Surgery: Yes (Stent x 1) Cholecystectomy: No Lung Surgery: No Neurologic Surgery: No Orthopedic Surgery: No - Immunization History Immunization Up to Date: No - Suicide/Smoking/Psychosocial Hx Smoking History: Never smoked Have you smoked in the past 12 months: No Hx Alcohol Use: Yes Drug/Substance Use Hx: No Substance Use Type: Alcohol <Lilly Thomson - Last Filed: 12/01/17 05:03> - Past Medical History Allergies/Adverse Reactions: Allergies Allergy/AdvReac Type Severity Reaction Status Date / Time shellfish derived Allergy Verified 11/30/17 18:17 Home Medications: Ambulatory Orders Aspirin [ASA -] 81 mg PO DAILY 02/03/17 Clopidogrel Bisulfate [Clopidogrel] 75 mg PO DAILY 08/17/16 Metoprolol Succinate [Toprol XL -] 25 mg PO BID 08/17/16 Ranolazine [Ranexa] 500 mg PO DAILY 08/17/16 Valsartan [Diovan] 40 mg PO DAILY 08/17/16 Omeprazole 20 mg PO DAILY 08/18/16 Simvastatin [Zocor -] 20 mg PO HS 08/18/16 Albuterol Sulfate Inhaler - [Ventolin Hfa Inhaler -] 1 - 2 inh PO Q4H #1 inhaler 08/19/16 Oxycodone HCl/Acetaminophen [Percocet 10-325 mg Tablet] 1 each PO TID 09/18/16 Cephalexin [Keflex] 250 mg PO QID #28 capsule 11/30/17 Mupirocin Ointment [Bactroban 2% Ointment -] 1 applic TP TID #30 g 11/30/17 Review of Systems - Review of Systems Able to Perform ROS?: Yes Comments:: 11/30/17 22:19 GENERAL/CONSTITUTIONAL: No fever or chills. No weakness. HEAD, EYES, EARS, NOSE AND THROAT: No change in vision. No ear pain or discharge. No sore throat. CARDIOVASCULAR: No chest pain or shortness of breath. RESPIRATORY: No cough, wheezing, or hemoptysis. GASTROINTESTINAL: No nausea, vomiting, diarrhea or constipation. GENITOURINARY: No dysuria, frequency, or change in urination. MUSCULOSKELETAL: +Bilateral hand pain. No joint or muscle swelling No neck or back pain. SKIN: No rash NEUROLOGIC: No headache, vertigo, loss of consciousness, or change in strength/ sensation. ENDOCRINE: No increased thirst. No abnormal weight change. HEMATOLOGIC/LYMPHATIC: No anemia, easy bleeding, or history of blood clots. ALLERGIC/IMMUNOLOGIC: No hives or skin allergy. <Ted Cuevas - Last Filed: 11/30/17 22:19> *Physical Exam - Vital Signs Last Vital Signs Temp Pulse Resp BP Pulse Ox 99.7 F H 88 18 135/68 97 11/30/17 21:31 11/30/17 21:31 11/30/17 21:31 11/30/17 21:31 11/30/17 21:31 - Physical Exam Comments: 11/30/17 22:19 GENERAL: Awake, alert, and fully oriented, in no acute distress HEAD: No signs of trauma EYES: PERRLA, EOMI, sclera anicteric, conjunctiva clear ENT: Auricles normal inspection, hearing grossly normal, nares patent, oropharynx clear without exudates. Moist mucosa NECK: Normal ROM, supple, no lymphadenopathy, JVD, or masses LUNGS: Breath sounds equal, clear to auscultation bilaterally. No wheezes, and no crackles HEART: Regular rate and rhythm, normal S1 and S2, no murmurs, rubs or gallops ABDOMEN: Soft, nontender, normoactive bowel sounds. No guarding, no rebound. No masses EXTREMITIES: +Pustules and open weeping wounds on right hand. +Bilateral hand edema and warmth on multiple digits around cuticles. Normal range of motion, No cords, NEUROLOGICAL: Cranial nerves II through XII grossly intact. Normal speech, normal gait SKIN: Warm, Dry, normal turgor, no rashes or lesions noted. <Ted Cuevas - Last Filed: 11/30/17 22:19> - Vital Signs Last Vital Signs Temp Pulse Resp BP Pulse Ox 99.3 F 91 H 18 148/92 99 11/30/17 18:13 11/30/17 18:13 11/30/17 18:13 11/30/17 18:13 11/30/17 18:13 <Lilly Thomson - Last Filed: 12/01/17 05:03> ED Treatment Course - LABORATORY CBC & Chemistry Diagram: 11/30/17 20:30 11/30/17 21:03 - ADDITIONAL ORDERS Additional order review: Laboratory Results 11/30/17 11/30/17 11/30/17 21:03 20:30 20:30 Sodium 138 Cancelled Potassium 3.8 Cancelled Chloride 105 Cancelled Carbon Dioxide 27 Cancelled Anion Gap 6 L Cancelled BUN 11 Cancelled Creatinine 0.9 Cancelled Creat Clearance w eGFR > 60 Cancelled Random Glucose 90 Cancelled Lactic Acid 0.8 Calcium 8.6 Cancelled Total Bilirubin 0.6 D Cancelled AST 10 L Cancelled ALT 18 Cancelled Alkaline Phosphatase 74 Cancelled Total Protein 7.0 Cancelled Albumin 3.8 Cancelled 11/30/17 20:30 RBC 4.23 MCV 94.8 MCHC 33.2 RDW 14.5 MPV 7.2 L Neutrophils % 75.4 Lymphocytes % 14.9 Monocytes % 8.9 Eosinophils % 0.3 D Basophils % 0.5 - Medications Given in the ED: ED Medications Discontinued Medications Generic Name Dose Route Start Last Admin Trade Name Young PRN Reason Stop Dose Admin Acetaminophen 1,000 mg 11/30/17 19:42 11/30/17 20:35 Ofirmev Injection - IVPB 11/30/17 19:43 1,000 mg ONCE ONE Administration Cefazolin Sodium 1 gm/ 50 mls @ 100 mls/hr 11/30/17 19:47 11/30/17 20:40 Dextrose IVPB 11/30/17 20:16 100 mls/hr ONCE ONE Administration <Ted Cuevas - Last Filed: 11/30/17 22:19> - LABORATORY CBC & Chemistry Diagram: 11/30/17 20:30 11/30/17 21:03 <Lilly Thomson - Last Filed: 12/01/17 05:03> Medical Decision Making - Medical Decision Making 11/30/17 20:50 Pt has psoriasis and eczema of her hands. Now inflamed and secondarily infected. One bad weeping area. Pt feels chills. She has a low grade temp. We will check labs and treat with IV ancef. If labs are normal, then she can be discharged home with keflex. 11/30/17 21:58 WBC is 12.8; lower than it has been in the past. Rest of labs normal; lactic acid low/normal 12/01/17 05:03 Home with keflex PO and follow with animal control supervisor/PMD <Lilly Thomson - Last Filed: 12/01/17 05:03> *DC/Admit/Observation/Transfer - Attestations Scribe Attestion: 11/30/17 22:19 Documentation prepared by Ted Cuevas, acting as medical support specialist for Lilly Thomson MD. <Ted Cuevas - Last Filed: 11/30/17 22:19> - Discharge Dispostion Decision to Admit order: No <Lilly Thomson - Last Filed: 12/01/17 05:03> Diagnosis at time of Disposition: Dyshidrotic eczema, Psoriasis, Cellulitis and abscess of hand - Discharge Dispostion Disposition: HOME Condition at time of disposition: Stable - Prescriptions Prescriptions: Cephalexin [Keflex] 250 mg PO QID #28 capsule Mupirocin Ointment [Bactroban 2% Ointment -] 1 applic TP TID #30 g - Patient Instructions Printed Discharge Instructions: DI for Cellulitis -- Adult
[2017-11-30] MEDS ORDERED: ACETAMINOPHEN 1000 MG/100 ML VIAL (NON FORMULARY) IVPB ONE (19:42)
[2017-11-30] MEDS ORDERED: CEFAZOLIN 1 GM in DEXTROSE 5%-WATER - 50 ML IVPB ONE (19:47)
[2017-11-30] MEDS ORDERED: ACETAMINOPHEN INJECTION 100 ML IVPB ONE (20:20)
[2017-11-30] MEDS ORDERED: ceFAZolin SODIUM 1 GM VIAL ONE (20:21)
[2017-11-30 20:35] LABS: BASO % 0.5 % (0-2.0); EOS % 0.3 % (0-4.5); HEMATOCRIT 40.2 % (32.4-45.2); HEMOGLOBIN 13.3 GM/dL (10.7-15.3); LYMPH % 14.9 % (8-40); MCH 31.5 pg (25.7-33.7); MCHC 33.2 g/dl (32.0-36.0); MEAN CELL VOLUME 94.8 fl (80-96); MEAN PLT VOLUME 7.2 fl (7.5-11.1); MONO % 8.9 % (3.8-10.2); NEUT % 75.4 % (42.8-82.8); PLATELET COUNT 244 K/MM3 (134-434); RBC 4.23 M/mm3 (3.60-5.2); RDW 14.5 % (11.6-15.6); WHITE BLOOD COUNT 12.8 K/mm3 (4.0-10.0)
[2017-11-30 21:32] VITALS: BP 135/68; PULSE 88; TEMP 99.7
[2017-11-30 21:39] LABS: ALBUMIN 3.8 g/dl (3.4-5.0); ANION GAP 6 (8-16); BILIRUBIN,TOTAL 0.6 mg/dL (0.2-1.0); BLOOD UREA NITROGEN 11 mg/dL (7-18); CALCIUM 8.6 mg/dL (8.5-10.1); CHLORIDE 105 mmol/L (98-107); CO2 27 mmol/L (21-32); CREATININE 0.9 mg/dL (0.55-1.02); GLUCOSE,RANDOM 90 mg/dL (74-106); POTASSIUM 3.8 mmol/L (3.5-5.1); SGOT/AST 10 U/L (15-37); SGPT/ALT 18 U/L (12-78); SODIUM 138 mmol/L (136-145)
[2017-11-30 21:40] LABS: ALK PHOS 74 U/L (45-117)
== END 2017-11-30 22:07 | disposition home or self-care (01) ==
LOC: JER 18:11
PROC: 3E03329 Introduction of Other Anti-infective into Peripheral Vein, Percutaneous Approach (ICD-10-PCS; principal; 2017-11-30)
PROC: 3E033NZ Introduction of Analgesics, Hypnotics, Sedatives into Peripheral Vein, Percutaneous Approach (ICD-10-PCS; 2017-11-30)
DX: L30.1 Dyshidrosis [pompholyx] (principal); L03.114 Cellulitis of left upper limb; L03.113 Cellulitis of right upper limb; I25.10 Atherosclerotic heart disease of native coronary artery without angina pectoris; I10 Essential (primary) hypertension; Z95.5 Presence of coronary angioplasty implant and graft; E78.00 Pure hypercholesterolemia, unspecified; Z87.19 Personal history of other diseases of the digestive system; E66.01 Morbid (severe) obesity due to excess calories; Z68.38 Body mass index [BMI] 38.0-38.9, adult
CPT/HCPCS: 36415; 80053; 83605; 85025; 96365; 96375; 99283-25; J0131

== ENCOUNTER 2022-05-15 11:35 | Emergency (ER) | payer OTHER ==
[2022-05-15 11:43] VITALS: BP 149/80; PULSE 82; RESP 18; TEMP 97.7; BMI 36.6
[2022-05-15] MEDS ORDERED: KETOROLAC TROMETHAMINE 30 MG/1 ML VIAL IM ONE (12:27)
[2022-05-15] MEDS ORDERED: KETOROLAC TROMETHAMINE 30 MG/1 ML VIAL ONE (12:28)
[2022-05-15 12:56] LABS: EPI CELLS 12 /uL (0-25.1); HYALINE CASTS 0 /uL (0-3.1); PH,URINE 5.5 (5.0-8.0); URINE APPEARANCE CLEAR; URINE BACTERIA 115 /uL (0-1359); URINE BILIRUBIN NEGATIVE (NEGATIVE); URINE COLOR YELLOW; URINE GLUCOSE (UA) NEGATIVE (NEGATIVE); URINE KETONE TRACE (NEGATIVE); URINE LEUK ESTERASE TRACE (NEGATIVE); URINE NITRITE NEGATIVE (NEGATIVE); URINE PROTEIN NEGATIVE (NEGATIVE); URINE RBC 5 /uL (0-23.9); URINE UROBILINOGEN 0.2 mg/dL (0.2-1.0); URINE WBC 10 /uL (0-25.8)
== END 2022-05-15 13:03 | disposition home or self-care (01) ==
LOC: JERFT 11:35
PROC: 3E0233Z Introduction of Anti-inflammatory into Muscle, Percutaneous Approach (ICD-10-PCS; principal; 2022-05-15)
DX: M54.50 Low back pain, unspecified (principal)
CPT/HCPCS: 81003; 87086; 96374; 99284-25

== ENCOUNTER 2022-09-10 19:57 | Emergency (ER) | payer OTHER ==
[2022-09-10 20:03] VITALS: BP 149/77; PULSE 89; RESP 17; TEMP 98.5; BMI 42.9
[2022-09-10] MEDS ORDERED: KETOROLAC TROMETHAMINE 30 MG/1 ML VIAL IM ONE (21:26)
[2022-09-10] MEDS ORDERED: KETOROLAC TROMETHAMINE 30 MG/1 ML VIAL ONE (21:28)
== END 2022-09-10 21:32 | disposition home or self-care (01) ==
LOC: JERFT 19:57
PROC: 3E0233Z Introduction of Anti-inflammatory into Muscle, Percutaneous Approach (ICD-10-PCS; principal; 2022-09-10)
DX: M54.42 Lumbago with sciatica, left side (principal)
CPT/HCPCS: 96372; 99284-25

== ENCOUNTER 2023-03-14 13:44 | Emergency (ER) | payer OTHER ==
[2023-03-14 14:00] VITALS: BP 171/77; PULSE 73; RESP 17; TEMP 99.2; BMI 39.4
[2023-03-14] MEDS ORDERED: METHOCARBAMOL 500 MG TABLET PO ONE (14:53)
[2023-03-14] MEDS ORDERED: ACETAMINOPHEN 325 MG TABLET (FP) PO ONE (14:53)
[2023-03-14] MEDS ORDERED: KETOROLAC TROMETHAMINE 30 MG/1 ML VIAL IM ONE (14:53)
[2023-03-14] MEDS ORDERED: METHOCARBAMOL 500 MG TABLET ONE (15:00)
[2023-03-14] MEDS ORDERED: KETOROLAC TROMETHAMINE 30 MG/1 ML VIAL ONE (15:00)
[2023-03-14] MEDS ORDERED: ACETAMINOPHEN 500 MG TABLET (FP) ONE (15:00)
== END 2023-03-14 16:08 | disposition home or self-care (01) ==
LOC: JERFT 13:44
PROC: 3E0233Z Introduction of Anti-inflammatory into Muscle, Percutaneous Approach (ICD-10-PCS; principal; 2023-03-14)
DX: M54.50 Low back pain, unspecified (principal); G89.29 Other chronic pain
CPT/HCPCS: 96372; 99284-25

== ENCOUNTER 2024-10-02 13:36 | Emergency (ER) | payer OTHER ==
[2024-10-02 13:47] VITALS: BP 151/85; PULSE 95; RESP 18; TEMP 99; BMI 42.0
[2024-10-02] MEDS ORDERED: ACETAMINOPHEN INJECTION 100 ML ONE (15:04)
[2024-10-02] MEDS ORDERED: ONDANSETRON 4 MG/2 ML VIAL ONE (15:04)
[2024-10-02] MEDS: SODIUM CHLORIDE 0.9% 500 ML INFUS.BAG IV ONE (15:26)
[2024-10-02] MEDS: ACETAMINOPHEN 1000 MG/100 ML BAG IVPB ONE (15:26)
[2024-10-02] MEDS: ONDANSETRON 4 MG/2 ML VIAL IVPUSH ONE (15:26)
[2024-10-02] MEDS: FAMOTIDINE 20 MG/50 ML IVPB 20 MG/50 ML MG IVPB ONE (15:27)
[2024-10-02 15:29] LABS: ABSOLUTE IMMATURE GRANULOCYTES 0.05 x10^3/uL (0.0-0.031); BASOPHILS # 0.03 x10^3/uL (0.01-0.08); EOSINOPHIL % 0.5 % (0.7-5.8); EOSINOPHILS # 0.05 x10^3/uL (0.04-0.36); HEMATOCRIT 48.5 % (34.1-44.9); MEAN CELL VOLUME 91.5 fl (79.4-94.8); MONOCYTE # 1.02 x10^3/uL (0.24-0.86); MONOCYTE % 9.5 % (4.7-12.5); PLATELET COUNT # 278 x10^3/uL (182-369); RDW 13.8 % (12.3-16.6)
[2024-10-02 15:48] LABS: POTASSIUM 3.9 mmol/L (3.5-5.1)
[2024-10-02 15:51] LABS: BLOOD UREA NITROGEN 16.8 mg/dL (7-18); CALCIUM 9.3 mg/dL (8.5-10.1)
[2024-10-02 15:54] LABS: CREATININE 0.9 mg/dL (0.55-1.3)
[2024-10-02 15:55] LABS: BILIRUBIN,TOTAL 0.7 mg/dL (0.2-1)
[2024-10-02 15:56] LABS: TOT PROT 7.5 g/dl (6.4-8.2)
== END 2024-10-02 18:11 | disposition home or self-care (01) ==
LOC: JER 13:36
PROC: 3E033GC Introduction of Other Therapeutic Substance into Peripheral Vein, Percutaneous Approach (ICD-10-PCS; principal; 2024-10-02)
PROC: 3E033NZ Introduction of Analgesics, Hypnotics, Sedatives into Peripheral Vein, Percutaneous Approach (ICD-10-PCS; 2024-10-02)
PROC: 3E033GC Introduction of Other Therapeutic Substance into Peripheral Vein, Percutaneous Approach (ICD-10-PCS; 2024-10-02)
DX: K57.32 Diverticulitis of large intestine without perforation or abscess without bleeding (principal); R10.33 Periumbilical pain; R10.13 Epigastric pain; R11.2 Nausea with vomiting, unspecified; K59.00 Constipation, unspecified; R19.7 Diarrhea, unspecified
CPT/HCPCS: 36415; 74177-TC; 80053; 83690; 85025; 96365; 96375; 99285-25; J0131; Q9967